=== PATIENT | female | born 1965 | race Caucasian/White ===

== ENCOUNTER 2016-09-08 10:29 | Emergency (ER) | payer BC ==
[~2016-09-08] VITALS: Ht 162.6 cm; Wt 69.8 kg
[~2016-09-08 10:29] MED LIST: AMOXICILLIN875 MG PO; ANTIVERT25 M1 PO; FLONASE 0.05%50 MCG NASAL; FLOVENT DISKUS50 MCG IH; IBUPROFEN 200200 M1 PO; LIPITOR10 MG PO; MAGIC MOUTHWASH SWISH&SPIT; OMEPRAZOLE 20 M20 M1 PO; PANTOPRAZOLE SO40 M1 PO; PRAVACHOL40 MG PO; XANAX 0.25 MG0.25 MG PO
[2016-09-08 11:02] LABS: ABSOLUTE NEUTROPHILS 4.5 thou/uL (1.4-8.2); BASOPHILS 0.5 % (0.0-2.0); EOSINOPHILS 1.1 % (0.0-3.0); HEMATOCRIT 39.1 % (37.0-47.0); HEMOGLOBIN 13.2 gm/dL (12.0-15.0); LYMPHOCYTES 29.8 % (24.0-44.0); MCH 29.1 pg (26.0-34.0); MCHC 33.7 % (28.0-37.0); MCV 86.2 fL (80.0-100.0); MONOCYTES 7.9 % (1.0-8.0); PLATELET COUNT 163 thou/uL (150-400); POLYS 60.7 % (36.0-66.0); RBC 4.54 mil/uL (4.20-5.00); RDW 14.2 % (10.5-14.5); WBC 7.4 thou/uL (4.0-11.0)
[2016-09-08 11:02] LABS: URINE BILIRUBIN NEGATIVE (Negative); URINE BLOOD 1+ (Negative); URINE COLOR YELLOW; URINE GLUCOSE-RANDOM* NEGATIVE (Negative); URINE KETONES NEGATIVE (Negative); URINE NITRITE NEGATIVE (Negative); URINE PROTEIN (DIPSTICK) NEGATIVE (Negative); URINE SPECIFIC GRAVITY >= 1.030 (1.003-1.035); URINE UROBILINOGEN 0.2 E.U./dl (0.2-1.0)
[2016-09-08 11:03] LABS: MANUAL DIFF NO
[2016-09-08 11:11] LABS: BACTERIA 1-9 Few /HPF (None Seen); CASTS None Seen /LPF (None Seen); CRYSTALS None Seen /LPF (None Seen); SQUAMOUS 4-10 Moderate /LPF (0-3); URINE RBC 0-2 Rare /HPF (0-2); URINE WBC 0-5 Rare /HPF (0-5)
[2016-09-08 11:28] LABS: CALCIUM 8.8 mg/dL (8.5-10.1); CREATININE 0.8 mg/dL (0.6-1.3); POTASSIUM 3.8 mmol/L (3.5-5.1)
[2016-09-08] MEDS ORDERED: HYDROCODONE-AP1 EAC6 PO (12:30)
[2016-09-08] MEDS ORDERED: FLOMAX0.4 MG PO (12:30)
[2016-09-08] MEDS ORDERED: IBUPROFEN 600600 M1 PO (12:30)
[2016-09-08 13:04] VITALS: BP 120/86
== END 2016-09-08 13:04 | disposition home or self-care (01) ==
LOC: ER 10:29
PROVIDERS: Nurse Practitioner
DX: N20.0 Calculus of kidney (principal); Z90.710 Acquired absence of both cervix and uterus

== ENCOUNTER → 2021-07-02 | Outpatient (CLI) | payer OTHER ==
[~2021-07-02] MED LIST changes: +FLOMAX0.4 MG PO; +HYDROCODONE-AP1 EAC6 PO; +IBUPROFEN 600600 M1 PO
== END ==
LOC: RAD 10:47
PROVIDERS: ATTEND Family Medicine
DX: M54.2 Cervicalgia (principal)